=== PATIENT | female | born 1970 | race Caucasian/White ===

== ENCOUNTER → 2017-09-18 | Outpatient (CLI) | payer BC ==
[~2017-09-18] MED LIST: AMBIEN10 MG PO; COZAAR100 MG PO; DIABETA2.5 MG PO; GLYBURIDE-METF1 EAC1 PO; IBUPROFEN800 MG PO; IRON325 M1 PO; LEVOTHYROXINE100 MCG PO; METFORMIN HCL1000 MG PO; PRAVASTATIN SOD40 MG PO; SYNTHROID88 MCG PO; VENTOLIN HFA18 GM IH; VITAMIN D1000 INTUN PO; VITAMIN D2000 UNIT PO; ZOLOFT100 MG PO
== END | disposition home or self-care (01) ==
LOC: NUC 09:13
DX: Z01.818 Encounter for other preprocedural examination (principal); E66.01 Morbid (severe) obesity due to excess calories; R10.11 Right upper quadrant pain
CPT/HCPCS: 78226; A9537

== ENCOUNTER → 2018-03-08 | Outpatient (CLI) | payer BC | END | disposition home or self-care (01) | LOC: CDC 08:00 | DX: Z01.810 Encounter for preprocedural cardiovascular examination (principal); E66.9 Obesity, unspecified | CPT/HCPCS: 93000 ==

== ENCOUNTER 2018-03-25 21:17 | Inpatient (IN) | payer BC ==
[~2018-03-25] VITALS: Ht 180.3 cm; Wt 132.1 kg
[~2018-03-25 21:17] MED LIST changes: +CELEBREX200 MG PO; +DAILY VALUE1 EACH PO; -LEVOTHYROXINE100 MCG PO; +SYNTHROID125 MCG PO
[2018-03-26 09:39] VITALS: BP 115/66
[2018-03-26 20:49] VITALS: BP 128/61
[2018-03-27] VITALS (7 sets, daily range): BP systolic 106–186; BP diastolic 58–88
[2018-03-27 06:13] LABS: HEMATOCRIT 36.8 % (36.0-46.0); HEMOGLOBIN 12.4 G/DL (11.9-15.5); MCH 28.6 PG (29.0-34.0); MCHC 33.7 G/DL (30.0-36.0); MCV 84.8 FL (83-99); PLATELET COUNT 255 K/uL (156-360); RBC DIS.WIDTH-CV 12.4 % (11.8-14.6); RBC DIS.WIDTH-SD 37.9 % (39-53); RED BLOOD COUNT 4.34 M/uL (3.80-5.20); WHITE BLOOD COUNT 10.4 K/uL (4.1-10.2)
[2018-03-27 06:39] LABS: CHLORIDE 102 MEQ/L (99-109); CREATININE 0.7 MG/DL (0.6-1.3); GFR ESTIMATE (CALCULATED) > 59 mL/min/; GLUCOSE 117 mg/dL (70-99); POTASSIUM 4.5 MEQ/L (3.7-5.4); SODIUM 136 MEQ/L (136-147); UREA NITROGEN (BUN) 11 mg/dL (9-23)
[2018-03-27] MEDS ORDERED: ACTIGALL300 MG PO (12:54)
[2018-03-27] MEDS ORDERED: COLACE100 MG PO (12:54)
[2018-03-27] MEDS ORDERED: ZOFRAN ODT8 MG PO (12:54)
[2018-03-27] MEDS ORDERED: PRILOSEC20 MG PO (12:54)
[2018-03-27] MEDS ORDERED: DILAUDID4 MG PO (12:54)
[2018-03-28 04:28] VITALS: BP 138/64
[2018-03-28 06:52] LABS: HEMATOCRIT 34.4 % (36.0-46.0); HEMOGLOBIN 11.3 G/DL (11.9-15.5); MCHC 32.8 G/DL (30.0-36.0); MCV 85.1 FL (83-99); PLATELET COUNT 228 K/uL (156-360); RBC DIS.WIDTH-CV 12.5 % (11.8-14.6); RBC DIS.WIDTH-SD 38.6 % (39-53); RED BLOOD COUNT 4.04 M/uL (3.80-5.20); WHITE BLOOD COUNT 7.2 K/uL (4.1-10.2)
[2018-03-28 07:14] LABS: CHLORIDE 104 MEQ/L (99-109); CREATININE 0.7 MG/DL (0.6-1.3); GFR ESTIMATE (CALCULATED) > 59 mL/min/; GLUCOSE 118 mg/dL (70-99); POTASSIUM 4.1 MEQ/L (3.7-5.4); SODIUM 137 MEQ/L (136-147); UREA NITROGEN (BUN) 6 mg/dL (9-23)
[2018-03-28 08:46] VITALS: BP 139/78
== END 2018-03-28 15:30 | disposition home or self-care (01) | DRG 621 ==
LOC: ENRESERV 21:17 → 2SOUTH 03-26 08:45 → 2EASTP 03-26 08:45 → 2SOUTH 03-26 14:35 → ENRESERV 03-26 15:50 → 2SOUTH 03-26 15:54 → 2EASTP 03-26 17:41
PROVIDERS: Surgery
PROC: 0DB64Z3 Excision of Stomach, Percutaneous Endoscopic Approach, Vertical (ICD-10-PCS; principal; 2018-03-26)
DX: E66.01 Morbid (severe) obesity due to excess calories (principal); Z68.41 Body mass index [BMI] 40.0-44.9, adult; K76.0 Fatty (change of) liver, not elsewhere classified; I10 Essential (primary) hypertension; E78.5 Hyperlipidemia, unspecified; E03.9 Hypothyroidism, unspecified; E11.9 Type 2 diabetes mellitus without complications; E55.9 Vitamin D deficiency, unspecified; F32.9 Major depressive disorder, single episode, unspecified; F41.9 Anxiety disorder, unspecified; Z79.84 Long term (current) use of oral hypoglycemic drugs
CPT/HCPCS: 74022; 80048; 82948; 85027; 88300; C9113; J0131; J0330; J1100; J1170; J1644; J1885; J2250; J2405; J2710; J2765; J3010; J3480; J7643; Q0175; S0020; S0074